=== PATIENT | female | born 1980 | race Caucasian/White ===

== ENCOUNTER 2020-08-30 11:37 | Emergency (ER) | payer OTHER ==
[~2020-08-30] VITALS: Ht 172.7 cm; Wt 74.8 kg
[2020-08-30] MEDS ORDERED: SYNTHROID75 MCG PO (11:51)
[2020-08-30] MEDS ORDERED: [UNRECOGNIZED DRUG - OTHER] PO (11:52)
[2020-08-30] MEDS ORDERED: PROMETHAZINE HC25 M1 PO (15:36)
[2020-08-30] MEDS ORDERED: AUGMENTIN 875-1 EACH PO (15:36)
== END 2020-08-30 15:47 | disposition home or self-care (01) ==
LOC: ED 11:37
DX: J32.9 Chronic sinusitis, unspecified (principal); Z88.6 Allergy status to analgesic agent; Z88.8 Allergy status to other drugs, medicaments and biological substances; Z79.899 Other long term (current) drug therapy; G43.909 Migraine, unspecified, not intractable, without status migrainosus
CPT/HCPCS: 70496; 85025; 96374; 96375; 99284-25; J1100; J1885; Q9967

== ENCOUNTER 2024-12-19 01:50 | Observation (INO) | payer BC ==
[2024-12-19] VITALS (9 sets, daily range): BP systolic 97–128; BP diastolic 60–69
[~2024-12-19] VITALS: Ht 172.7 cm; Wt 74.4 kg
[~2024-12-19 01:50] MED LIST: AUGMENTIN 875-1 EACH PO; PROMETHAZINE HC25 M1 PO; SYNTHROID75 MCG PO; [UNRECOGNIZED DRUG - OTHER] PO
[2024-12-19] MEDS ORDERED: ZOLPIDEM TARTRAT5 MG PO (02:01)
[2024-12-19] MEDS ORDERED: ESTRADIOL0.5 MG PO (02:01)
[2024-12-19 02:13] LABS: BASOPHILS 0.4 % (0-2); EOSINOPHILS 6.1 % (0-6); HEMATOCRIT 43.1 % (35.0-50.0); HEMOGLOBIN 14.8 g/dL (12.0-18.0); LYMPHOCYTES 40.2 % (24-44); MCHC 34.4 g/dl (30-36); MCV 84.2 fl (81-99); MONOCYTES 5.9 % (0-12); NEUTROPHILS 47.4 % (39-80); PLATELET COUNT 218 K/uL (140-440); RBC 5.12 M/ul (4.3-5.7); RDW 13.1 (10.5-15.0)
[2024-12-19] MEDS ORDERED: ONDANSETRON 4 MG TAB ODT SL ONE (02:15)
[2024-12-19] MEDS ORDERED: LIDOCAINE & ANTACID 35 ML BTL PO ONE (02:15)
[2024-12-19 02:25] LABS: ALBUMIN 4.1 g/dL (3.4-5.0); ALBUMIN/GLOBULIN RATIO 1.24 (1.1-2.4); ANION GAP 12.9 (7-21); BILIRUBIN, TOTAL 0.3 mg/dL (0.2-1.0); BUN/CREATININE RATIO 22.89 (6.0-28.6); CALCIUM 9.6 mg/dL (8.5-10.1); CREATININE, SERUM 0.83 mg/dL (0.55-1.02); POTASSIUM 3.9 mmol/L (3.5-5.1); PROTEIN, TOTAL 7.4 g/dL (6.4-8.2)
[2024-12-19] MEDS ORDERED: MORPHINE SULFATE 4 MG/ML VIAL IV ONE (02:30)
[2024-12-19] MEDS ORDERED: HYDROmorphone HCL 1 MG/ML SYR IV PRN ×2 (03:15→04:15)
[2024-12-19] MEDS ORDERED: FAMOTIDINE 20 MG/ 2 ML VIAL IV ONE (03:30)
[2024-12-19] MEDS ORDERED: AMP/SULBACTAM SOD 3 GM in SODIUM CHLORIDE 0.9% 100 ML IV ONE (03:30)
[2024-12-19 03:47] LABS: BILIRUBIN, URINE NEGATIVE (negative); BLOOD/HGB, URINE NEGATIVE (Negative); KETONE, URINE NEGATIVE (Negative); LEUK ESTERASE, URINE NEGATIVE (negative); NITRITE, URINE NEGATIVE (negative)
[2024-12-19 03:52] LABS: EPITHELIAL CELLS, URINE SQUAMOUS 3+ /lpf (0-1+)
[2024-12-19 03:53] LABS: BACTERIA, URINE 4+ /hpf (negative); CASTS, URINE NONE SEEN \\lpf; COLLECTION TYPE, URINE CLEAN CATCH; CRYSTALS, URINE NONE SEEN (0-1+); RED BLOOD CELLS, URINE 0-1 /hpf (0-5); REFLEX CULTURE, URINE No (No)
[2024-12-19] MEDS ORDERED: LACTATED RINGER'S 1,000 ML IV SCH ×3 (04:15→09:30)
[2024-12-19] MEDS ORDERED: ondansetron HCL 4 MG/2 ML VIAL IV PRN ×4 (04:15→09:30)
--- NOTE | 2024-12-19 04:42 | NUR ---
PATIENT TO THE FLOOR BY HAMPER MAKER MACHINE VIA WHEELCHAIR. PATIENT TRANSFERRED FROM WHEELCHAIR TO BED INDEPENDENTLY. VS AND BED WEIGHT OBTAINED AND RECORDED. PATIENT ORIENTED TO ROOM AND CALL LIGHT. PATIENT EDUCATED ON NPO STATUS. PATIENT VERBILIZES UNDERSTANDING. PATIENT ASSESSMENT COMPLETE. PATIENT REPORTS 2/10 ABD PAIN AT THIS TIME. DENIES THE NEED FOR PAIN MEDICATION AT THIS TIME. PATIENT HAS NO FURTHER NEEDS. CALL LIGHT IN REACH.
--- NOTE | 2024-12-19 07:16 | NUR ---
REPORT RECEIVED FROM BASTING MACHINE OPERATOR RN CAROLYN. PATIENT IS LYING IN BED WITH HOB ELEVATED. PATIENT REPORTS PAIN AND IS REQUESTING SOMETHING FOR THAT. PATIENT STATED NO FURTHER NEEDS AT THIS TIME. CALL LIGHT AND PERSONAL BELONGINGS ARE WITHIN REACH.
--- NOTE | 2024-12-19 07:45 | NUR ---
PATIENT IS LYING IN BED WITH HOB ELEVATED. PATIENT WITH EYES OPEN AND RESPIRATIONS ARE EVEN AND UNLABORED. PRN DILAUDID ADMINISTERED FOR ABDOMINAL PAIN OF 4/10. FULL ASSESSMENT COMPLETE AND DOCUMENTED IN THE CHART. IV SITE FLUSHED WITH 10 ML NORMAL SALINE. IV DRESSING IS CLEAN, DRY, AND INTACT. PATIENT HAS LR INFUSING AT 125 ML/HR. SKIN INTACT. PATIENT WITH NO COMPLAINTS OF NAUSEA. PATIENT IS NPO WITH ACTIVE BOWEL TONES IN ALL FOUR QUADRANTS. PATIENT IS ON ROOM AIR AND LUNG SOUNDS ARE CLEAR THROUGHOUT. CARDIAC WITH NORMAL S1 AND S2 ON AUSCULTATION. RADIAL AND PEDAL PULSES ARE STRONG BILATERALLY. NO EDEMA NOTED. CAPILLARY REFILL IN THE UPPER AND LOWER EXTREMITIES IS LESS THAN 3 SECONDS. SENSATION INTACT WITH NO COMPLAINTS OF NUMBNESS OR TINGLING. PATIENT DAUGHTER AND ENTERED THE ROOM AT THIS TIME. PATIENT STATED NO FURTHER NEEDS AT THIS TIME. CALL LIGHT AND PERSONAL BELONGINGS ARE WITHIN REACH.
--- NOTE | 2024-12-19 08:21 | NUR ---
Spoke with Celeste. She lives in a house with her spouse and 3 kids. She is active. Denies any needs to go home and does not have any issues getting in or out of her home. She denies financial issues or safety in her home. Spouse and family will assist her on discharge.
--- NOTE | 2024-12-19 08:25 | NUR ---
PATIENT IS LYING IN BED WITH HOB ELAVATED AND BILATERAL KNEES BENT. PATIENT HAS TWO VISITORS IN THE ROOM AT THIS TIME. PATIENT REPORTED VOIDING, 600ML OF LIGHT YELLOW URINE WAS MEASURED. PATIENT REQUESTED ICE CHIPS FOR DRY MOUTH. MOUTH SWABS AVAILABLE AT THIS TIME. LR CONTINUES TO INFUSE AT 125ML/HR. PATIENT RATES PAIN 0/10 AND DENIES FURTHER NEEDS AT THIS TIME. CALL LIGHT AND PERSONAL BELONGINGS ARE WITHIN REACH.
--- NOTE | 2024-12-19 09:05 | NUR ---
PATIENT LYING IN BED WITH HOB ELEVATED. PATIENT HAS TWO VISITORS AT THIS TIME. THIS STUDENT NURSE, PRIMARY NURSE, LEYDI, AND DR. Andrade IN THE ROOM AT THIS TIME. DR. Andrade DISCUSSING SURGERY OPTIONS AND PATIENT'S SYMPTOMS. PATIENT EXPRESSES UNDERSTANDING AND BEING NPO STATUS SINCE LAST NIGHT. PATIENT DENIES FURTHER NEEDS AT THIS TIME. CALL LIGHT AND PERSONAL BELONGINGS ARE WITHIN REACH.
[2024-12-19] MEDS ORDERED: propofoL 200 MG/20 ML VIAL ONE (09:15)
[2024-12-19] MEDS ORDERED: KETOROLAC TROMETHAMINE 30 MG/ML VIAL ONE (09:15)
[2024-12-19] MEDS ORDERED: LIDOCAINE HCL 2% 5 ML SDV ONE (09:15)
[2024-12-19] MEDS ORDERED: ondansetron HCL 4 MG/2 ML VIAL ONE (09:15)
[2024-12-19] MEDS ORDERED: ROCURONIUM BROMIDE 50 MG/5 ML SYR ONE (09:15)
[2024-12-19] MEDS ORDERED: LIDOCAINE HCL 1% 30 ML SDV ONE (09:15)
[2024-12-19] MEDS ORDERED: MIDAZOLAM HCL 2 MG/2 ML VIAL ONE (09:15)
[2024-12-19] MEDS ORDERED: DEXAMETHASONE SOD PHOS 4 MG/ML VIAL ONE (09:15)
[2024-12-19] MEDS ORDERED: iopamidoL 30 ML VIAL ONE (09:16)
[2024-12-19] MEDS ORDERED: SODIUM CHLORIDE 0.9% 40 ML IV ONE (09:17)
[2024-12-19] MEDS ORDERED: FAMOTIDINE 20 MG/ 2 ML VIAL IV SCH ×2 (09:20→09:30)
[2024-12-19] MEDS ORDERED: fentaNYL citrate 50 MCG/ML SDV IV PRN (09:30)
[2024-12-19] MEDS ORDERED: CEFAZOLIN SODIUM 2 GM/20 ML SYR IV SCH ×2 (09:30)
[2024-12-19] MEDS ORDERED: IBLOOD GLUCOSE TEST STRIP 1 EA TEST VI PRN (09:30)
[2024-12-19] MEDS ORDERED: NALOXONE HCL 0.4 MG SYR IV PRN (09:30)
--- NOTE | 2024-12-19 09:38 | NUR ---
PATIENT IS LEAVING THE FLOOR AT THIS TIME WITH SURGERY TEAM. PATIENT COMPLETED SURGERY WIPE DOWN, REMOVED JEWELERY AND NEW GOWN ON. BED LINENS CHANGED. PRIMARY NURSE, LEYDI, CALLED RESPIRATORY THERAPY TO MEET TEAM IN DAY SURGERY TO COMPLETE AN EKG. PATIENT STATES NO FURTHER NEEDS AT THIS TIME.
--- NOTE | 2024-12-19 09:44 | NUR ---
UR CLINICAL REVIEW: MCG-PER PHYSICAL METALLURGIST MCG ENCOUNTER INACTIVE. PER PHYSICAL METALLURGIST MEETS OBS FOR JAQUELIN DYER [facility] OBS 12/19/24 @ 0920 EMAIL SENT TO ADMITTING TO UPDATE REG NO AUTH REQUIRED FOR OBS VISIT PATIENT LIKELY TO DC TODAY POST PROCEDURE 12/20/24
--- NOTE | 2024-12-19 09:44 | NUR ---
PT NOT AVAILABLE FOR VISIT. PROVIDED PRAYER.
[2024-12-19] MEDS ORDERED: CEFAZOLIN SODIUM 2 GM/20 ML SYR IV ONE (10:00)
[2024-12-19] MEDS ORDERED: KETAMINE in NS 50 MG/5 ML SYR ONE (10:06)
--- NOTE | 2024-12-19 10:06 | NUR ---
PATIENT REMAINS OFF THE FLOOR AT THIS TIME FOR SURGERY.
--- NOTE | 2024-12-19 10:11 | NUR ---
PATIENT IS OFF THE FLOOR AT THIS TIME.
[2024-12-19] MEDS ORDERED: dexmedeTOMIDine HCl 200 MCG/2 ML VIAL ONE (10:14)
[2024-12-19] MEDS ORDERED: ACETAMINOPHEN 1,000 MG/100 ML VIAL ONE (10:18)
[2024-12-19] MEDS ORDERED: MAGNESIUM SULFATE 1 GM/2 ML VIAL ONE (10:24)
[2024-12-19] MEDS ORDERED: LACTATED RINGER'S 1,000 ML IV ONE (10:38)
[2024-12-19] MEDS ORDERED: SUGAMMADEX SODIUM 200 MG/2 ML ML ONE (11:01)
--- NOTE | 2024-12-19 11:06 | NUR ---
PATIENT REMAINS OFF THE FLOOR AT THIS TIME.
[2024-12-19] MEDS ORDERED: ESMOLOL HCL 100 MG/10 ML VIAL IV ONE (11:13)
--- NOTE | 2024-12-19 11:24 | NUR ---
12/19/24 Digeo4 Marie Muller 1114- PT PRESENTS TO PACU, SEMI HERNANDEZ POSITION, NON REACTIVE TO STIMULUS. OPA IN PLACE, BREATHING EVEN AND NON LABORED, ON 6L O2 PER MASK. ABD SOFT, NON DISTENDED, STERI STRIPS IN PLACE TO 4 LAP SITES. LR INFUSING TO LFA IV. ALL MONITORS IN PLACE. 1122- PT SWALLOWING BUT REMAINS NON REACTIVE TO TACTILE STIMULUS. CONTINUE TO MONITOR.
[2024-12-19] MEDS ORDERED: MOTRIN IB200 MG PO (11:32)
[2024-12-19] MEDS ORDERED: TYLENOL EXTRA500 MG PO (11:32)
[2024-12-19] MEDS ORDERED: DILAUDID2 MG PO (11:32)
--- NOTE | 2024-12-19 11:40 | NUR ---
RECIEVED REPORT FROM CHICHO HOLLEY. ASSUMING CARE OF THIS PT. PT IN SURGERY AT THIS TIME.
--- NOTE | 2024-12-19 11:50 | NUR ---
PT ARRIVES BACK TO MEDSUR ROOM WITH AND SON AT THE BEDSIDE. REPORT RECIEVED FROM CHICHO MADISON. PT DENIES NAUSEA, STATES SHE HAS ABDOMINAL PAIN AND STATES "IT JUST HURTS REALLY BAD" WHEN ASKED TO RATE PAIN. KITA KENDALL AT THE BEDSIDE AND ATTENDS TO PAIN CONTROL NEEDS. PT REQUESTS WARM BLANKET, GIVEN. PT PT DECLINES FOOD OR DRINK AT THIS TIME. CALL LIGHT WITHIN REACH. VSS. CPOX IN PLACE, SCDs IN PLACE.
[2024-12-19] MEDS ORDERED: HYDROmorphone HCL 1 MG/ML SYR ONE (12:04)
[2024-12-19] MEDS ORDERED: IBUPROFEN 600 MG TAB PO PRN (12:15)
[2024-12-19] MEDS ORDERED: ACETAMINOPHEN 500 MG TAB PO PRN (12:15)
[2024-12-19] MEDS ORDERED: HYDROmorphone HCL 2 MG TAB PO PRN (12:15)
[2024-12-19] MEDS ORDERED: SEVOFLURANE 250 ML BTL INH ONE (13:15)
--- NOTE | 2024-12-19 13:17 | EKG ---
[facility] [address] [facility] [place], [place] [address] Signed Sinus bradycardia Otherwise normal ECG No previous ECGs available Confirmed by Ru Enriquez MD ([id number]) on 12/19/2024 1:17:40 PM Electronically Signed By: RU ENRIQUEZ MD 12/19/24 1317 PATIENT NAME: EDITH KEENAN CHAPARRITA Electrocardiogram DATE OF : 76 PHYSICIAN: RU ENRIQUEZ MD REPORT #: [id number] REPORT IS CONFIDENTIAL AND NOT TO BE RELEASED WITHOUT AUTHORIZATION
--- NOTE | 2024-12-19 14:05 | NUR ---
THIS RN ENTERS ROOM TO DO POST OP VITAL SIGNS WELL ADMINISTER SCHEDULED ANTIBIOTICS. WHILE ADMINISTERING ANTIBIOTICS VIA IV, PT STATES SHE IS FEELING NAUSEAS. PT GIVEN EMESIS BAG AND ZOFRAN ADMINISTERED. BLANKETS REMOVED AND SCDs REMOVED AT THIS TIME. PT STATES "THAT FEELS BETTER" AT THIS TIME. PT STATES PAIN IS CURRENTLY 2/10. VSS. PT ABLE TO EAT SMALL AMOUNT OF FOOD PRIOR TO NAUSEA. PT STATES NO FURTHER NEEDS AT THIS TIME, CALL LIGHT WITHIN REACH.
--- NOTE | 2024-12-19 14:58 | NUR ---
PT DENIES PAIN AND NAUSEA AT THIS TIME. VSS. PT STATES NO CURRENT NEEDS. CALL LIGHT WITHIN REACH. PT REFUSES SCDs AT THIS TIME.
--- NOTE | 2024-12-19 15:28 | NUR ---
PT UP TO RESTROOM WITH SBA, AMBULATES W/O DIFFICULTY AND WITH MINIMAL PAIN. PT DENIES NAUSEA. PT VOIDS W/O DIFFICULTY. PT STATES SHE FEELS READY TO GO HOME.
--- NOTE | 2024-12-19 15:36 | NUR ---
THIS RN CALLS DR. ROSE TO UPDATE ON PT STATUS. STATES PT IS OKAY TO DC WHEN READY.
--- NOTE | 2024-12-19 16:02 | NUR ---
PT DRESSES SELF IN OWN CLOTHES. IV DC'D WNL. DC EDUCATION AND PACKET GIVEN, PT VERBALIZES UNDERSTANDING. VSS. PT STATES ALL QUESTIONS HAVE BEEN ANSWERED. PT LEAVING WITH ALL PERSONAL BELONGINGS. PT AMBULATES TO WHEELCHAIR, WHEELED TO FRONT OF BUILDING BY NURSING PERSONEL.
--- NOTE | 2024-12-20 07:57 | HP ---
[facility] [address] [place], [place] [address] Signed ADMISSION DATE: 12/19/2024 REASON FOR ADMISSION: Acute calculous cholecystitis. HISTORY OF PRESENT ILLNESS: This 44-year-old white woman is a patient of Dr. Erin Payan. Her daughter is known to me having had cholecystectomy in her teenage years. The patient has had episodic upper abdominal pain for several weeks, but in the past few days has had increasing pain. At approximately 11:00 p.m. last night, her epigastric pain recurred and was quite severe. She presented to the emergency room where she was evaluated by Dr. Raciel Henderson and findings suggestive of acute calculous cholecystitis. A gallbladder ultrasound was performed which showed multiple gallstones within the gallbladder. LABORATORY STUDIES: Were essentially normal with a white count of 9.5 and liver enzymes notable for a normal bilirubin of 0.3, alkaline phosphatase 101. She is admitted for further evaluation and care. Since admission, she has been improved overall. She has had no nausea or vomiting and her pain is better. 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 SURGICAL HISTORY: Includes hysterectomy, x3, breast augmentation and uncertain cardiac operation at age 14. She has no cardiac symptoms. 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 ALLERGIES: Include aspirin causing nausea, Tylenol with Vicodin causing mild nausea and hydrocodone similar symptoms as might be expected. CURRENT MEDICATIONS: Include estradiol 0.5 mg p.o. daily and zolpidem 5 mg daily. SOCIAL HISTORY: Electronically Signed By: JUDITH ROSE MD 12/20/24 0757 PATIENT NAME: EDITH KEENAN HISTORY AND PHYSICAL DATE OF : 76 REPORT #: [id number] PHYSICIAN: JUDITH ROSE MD PCP: ERIN PAYAN MD REPORT IS CONFIDENTIAL AND NOT TO BE RELEASED WITHOUT AUTHORIZATION [facility] [address] [place], [place] [address] Signed She is . She is accompanied by her and her daughter at this time. They live in [place]. REVIEW OF SYSTEMS: She denies any shortness of breath or chest pain. She has had no dysphagia or dysuria. Denies hematemesis or blood per rectum. Her pain is in the right upper quadrant and is improved since admission. PHYSICAL EXAMINATION: GENERAL: Pleasant white woman who looks to be nontoxic. VITAL SIGNS: Height is 5 feet 8 inches, weight is 74.4 kg, BMI 24.9. HEENT: Trachea is midline. Mucous membranes are reasonably moist. CHEST: Shows normal respiratory excursion. Pulses regular. ABDOMEN: Scaphoid and soft. There is mild tenderness in the right subcostal and epigastric area. There is no palpable mass. She has no ascites. EXTREMITIES: Show no clubbing, cyanosis, or edema. LABORATORY DATA: Lab studies as noted. White count 8.6, hematocrit 43.1, platelets 218,000. Chem profile essentially normal, glucose 114. Liver enzymes normal. Lipase normal at 62. Urinalysis negative. Ultrasound findings included interpretation of a gallbladder dilated with wall thickening and gallstones and positive sonographic Mahoney sign. Common bile duct was 4.2 mm. Liver was normal. Images were reviewed of the gallbladder, which show normal appearing liver. The gallbladder has what appeared to be layering stones and sludge. There is no evidence of neoplasm. ASSESSMENT: The patient has clinical findings of acute calculous cholecystitis. She has family history of same in her daughter. I discussed with the patient and her family the pathophysiology of biliary disease and recommendation of treatment to include cholecystectomy preferred by a laparoscopic approach. The risk of bleeding, infection, bile duct injury, need for open procedure, need for common duct exploration and so forth were all reviewed with her, she understands and wished to proceed. MD KERRY Johnson/PATRICIOL /[id number] Electronically Signed By: JUDITH ROSE MD 12/20/24 0757 PATIENT NAME: EDITH KEENAN HISTORY AND PHYSICAL DATE OF : [birth year] REPORT #: [id number] PHYSICIAN: JUDITH ROSE MD PCP: ERIN PAYAN MD REPORT IS CONFIDENTIAL AND NOT TO BE RELEASED WITHOUT AUTHORIZATION [facility] [address] [place] [address] Signed cc: Erin Payan MD Copies: ~ Electronically Signed By: JUDITH ROSE MD 12/20/24 0757 PATIENT NAME: EDITH KEENAN CHAPARRITA HISTORY AND PHYSICAL DATE OF : [birth year] REPORT #: [id number] PHYSICIAN: JUDITH ROSE MD PCP: ERIN PAYAN MD REPORT IS CONFIDENTIAL AND NOT TO BE RELEASED WITHOUT AUTHORIZATION
--- NOTE | 2024-12-20 07:57 | OR ---
[facility] [address] [place], [place] [address] Signed DATE OF OPERATION: 12/19/2024 SURGEON: Judith Rose MD PREOPERATIVE DIAGNOSIS: Acute calculous cholecystitis. POSTOPERATIVE DIAGNOSIS: Acute calculous cholecystitis. PROCEDURES: 1. Laparoscopic cholecystectomy with intraoperative cholangiogram. 2. Surgeon-directed fluoroscopy. ANESTHESIA: General endotracheal; Radha Bradford CRNA and local 10 mL of 0.25% Marcaine with epinephrine. INDICATION: This 44-year-old white woman was seen in the emergency room late last night by Dr. Raciel Hendesron for right upper abdominal pain which had been going on for a number of hours and episodically several weeks before. Evaluation included liver enzymes and CBC, which were normal and a gallbladder ultrasound showing gallstones within the gallbladder. She was admitted, given fluid resuscitation and IV antibiotics and now to undergo cholecystectomy preferred by a laparoscopic approach. The risk of bleeding, infection, bile duct injury, need for open surgery and other unforeseen complications was reviewed in detail. She understands and wished to proceed. FINDINGS: The gallbladder was edematous and acutely inflamed. The liver was normal. Cholangiogram was normal. The gallbladder once excised showed multiple yellow gallstones approximately 5 mm in size. There were no other issues and she had no complications with operation. DESCRIPTION OF PROCEDURE: The patient was brought to the operating room, given a general endotracheal anesthetic. Preoperative antibiotic Ancef was given. Sequential compression device stockings were applied and after satisfactory general endotracheal anesthesia, the abdomen was prepared with chlorhexidine solution and draped sterilely. An infraumbilical incision was made and using an open Thomas cannula technique pneumoperitoneum was achieved to a level of Electronically Signed By: JUDITH ROSE MD 12/20/24 0757 PATIENT NAME: EDITH KEENAN OPERATIVE REPORT DATE OF : [birth year] REPORT #: [id number] PHYSICIAN: JUDITH ROSE MD PCP: BEATRIS GARCIA MD REPORT IS CONFIDENTIAL AND NOT TO BE RELEASED WITHOUT AUTHORIZATION [facility] [address] [place], [place] [address] Signed 14 mmHg of carbon dioxide gas. Intra-abdominal inspection showed no sign of ascites or carcinomatosis. The liver appeared normal. The gallbladder was inflamed and mildly distended. Three additional trocars were placed in their usual configuration in the subxiphoid, right midclavicular, and right anterior axillary line. The gallbladder was elevated cephalad and omental adhesions to its undersurface were taken down with blunt and electrocautery dissection. Further elevation of the gallbladder allowed for lateral retraction of the infundibulum and using blunt and electrocautery dissection the triangle of Calot was dissected free using electrocautery. The cystic artery was easily identified and doubly clipped and divided. The cystic duct was quite narrow, but well demonstrated. The critical view of safety was maintained. A clip was applied across the gallbladder cystic duct junction and transverse choledochotomy was made in the cystic duct. Egress of clear bile was noted. Using the Albright type cholangiocatheter system, intraoperative cholangiography was undertaken showing free flow of contrast in the biliary tree with prompt emptying into the duodenum. The cystic duct was triply clipped and divided and the gallbladder dissected free in a retrograde fashion using electrocautery. Gallbladder was extracted through the infraumbilical port site, opened on the back table and found to have numerous less than 5 mm yellow gallstones. Mucosa was inflamed, but without sign of neoplasm. Irrigation was undertaken in the subhepatic space. There was no sign of bile leak bleeding or other problems. The trocars were removed under direct visualization showing no sign of bleeding. The infraumbilical fascial incision was reapproximated with interrupted 0 Vicryl suture. 10 mL of 0.25% Marcaine with epinephrine was injected locally and the skin was closed with interrupted 3-0 Vicryl, Steri-Strips were applied. The patient was ultimately extubated and transferred to the recovery room in good condition having suffered no complication. Sponge, needle, and instrument counts reported as correct x3. MD KERRY Johnson/MODL /[id number] cc: MD Dr. Raciel Hester Electronically Signed By: JUDITH ROSE MD 12/20/24 0757 PATIENT NAME: EDITH KEENAN OPERATIVE REPORT DATE OF : [birth year] REPORT #: [id number] PHYSICIAN: JUDITH ROSE MD PCP: BEATRIS GARCIA MD REPORT IS CONFIDENTIAL AND NOT TO BE RELEASED WITHOUT AUTHORIZATION [address] [address] Signed Copies: ~ Electronically Signed By: JUDITH ROSE MD 12/20/24 0757 PATIENT NAME: EDITH KEENAN CHAPARRITA OPERATIVE REPORT DATE OF : [birth year] REPORT #: [id number] PHYSICIAN: JUDITH ROSE MD PCP: BEATRIS GARCIA MD REPORT IS CONFIDENTIAL AND NOT TO BE RELEASED WITHOUT AUTHORIZATION
--- NOTE | 2024-12-21 14:49 | PATH ---
[facility] [address] [facility] [place] [place] [place] [address] Signed SPECIMEN(S): A GALLBLADDER AND GALLSTONES SPECIMEN SOURCE: A. GALLBLADDER AND GALLSTONES CLINICAL HISTORY: Acute cholecystitis FINAL PATHOLOGIC DIAGNOSIS: Gallbladder and gallstones: - Chronic calculus cholecystitis. - Incidental pericystic lymph node with reactive histologic features. JVR:pam MICROSCOPIC EXAMINATION: Histologic sections of all submitted blocks are examined by light microscopy. These findings, together with the gross examination, support the pathologic diagnosis. GROSS DESCRIPTION: The specimen, labeled and designated "Brown, K., gallbladder and gallstones per requisition," is received in formalin and consists of Specimen: Surgically disrupted gallbladder. Dimensions: 10.5 x 3.1 x 2.3 cm. Serosa: Blue-green and smooth. Cystic Duct: Unobstructed. Calculi: Present�yellow and botryoid, within container. Mucosa: Green and velvety. Wall thickness: 0.2 cm. Lymph node: A pericystic lymph node is grossly identified. Additional: None. Grievance And Appeals Specialist sections are submitted in (A1). AA (under the direct supervision of a pathologist) The Gross Description was prepared using a voice recognition system. The report was reviewed for accuracy; however, sound-alike word errors, addition and/or deletions may occur. If there is any question about this report, please contact Client Services. PERFORMING LABORATORY: Technical component was performed by [facility], [address] [place] [id number] (CLIA# [id number]). Professional interpretation was PATIENT NAME: EDITH KEENAN PATHOLOGY DATE OF : [birth year] REPORT #: [id number] PHYSICIAN: RAFAELAYTE PATHOLOGY PCP: BEATRIS GARCIA MD REPORT IS CONFIDENTIAL AND NOT TO BE RELEASED WITHOUT AUTHORIZATION [address] [address] Signed performed by [facility] [address] [address] (CLIA#: [id number]). Diagnostician: Suresh Lentz MD Pathologist Electronically Signed 12/21/2024 Copies: ~ PATIENT NAME: EDITH KEENAN PATHOLOGY DATE OF : [birth year] REPORT #: [id number] PHYSICIAN: RAFAELAYTE PATHOLOGY PCP: BEATRIS GARCIA MD REPORT IS CONFIDENTIAL AND NOT TO BE RELEASED WITHOUT AUTHORIZATION
== END 2024-12-19 16:02 | disposition home or self-care (01) ==
LOC: ED 01:50 → MS 03:38
PROVIDERS: Emergency Medicine; ADMIT Surgery; ATTEND Surgery
PROC: BF13YZZ Fluoroscopy of Gallbladder and Bile Ducts using Other Contrast (ICD-10-PCS; 2024-12-19)
PROC: 0FT44ZZ Resection of Gallbladder, Percutaneous Endoscopic Approach (ICD-10-PCS; principal; 2024-12-19 09:30)
DX: K80.12 Calculus of gallbladder with acute and chronic cholecystitis without obstruction (principal); Z88.8 Allergy status to other drugs, medicaments and biological substances; Z88.5 Allergy status to narcotic agent; Z79.899 Other long term (current) drug therapy
CPT/HCPCS: 00790; 36415; 74300; 76705; 80053; 81001; 83690; 85025; 93005; 93010; A9270; J0131; J0295; J0690; J1100; J1171; J1885; J2003; J2250; J2270; J2405; J2704; J3475; J3490; J7121; Q9967

== ENCOUNTER 2025-02-04 14:40 | Emergency (ER) | payer BC ==
[~2025-02-04] VITALS: Ht 172.7 cm; Wt 72.3 kg
[~2025-02-04 14:40] MED LIST changes: +DILAUDID2 MG PO; +ESTRADIOL0.5 MG PO; +MOTRIN IB200 MG PO; +TYLENOL EXTRA500 MG PO; +ZOLPIDEM TARTRAT5 MG PO
[2025-02-04] MEDS ORDERED: METOCLOPRAMIDE HCL 10 MG/2 ML SDV IV ONE (15:00)
[2025-02-04] MEDS ORDERED: ondansetron HCL 4 MG/2 ML VIAL IV ONE (15:00)
[2025-02-04] MEDS ORDERED: SODIUM CHLORIDE 0.9% 1,000 ML IV PRN (15:00)
[2025-02-04] MEDS ORDERED: diphenhydrAMINE HCL 50 MG/ML VIAL IV ONE (15:00)
[2025-02-04 15:16] LABS: BASOPHILS 0.4 % (0.1-1.2); EOSINOPHILS 5.6 % (0.7-5.8); HEMATOCRIT 40.7 % (34.1-44.9); HEMOGLOBIN 13.8 g/dL (11.2-15.7); LYMPHOCYTES 32.4 % (19.3-51.7); MCH 28.9 PG (25.6-32.2); MCHC 33.9 g/dL (32.2-35.5); MCV 85.1 fL (79.4-94.8); MONOCYTES 6.7 % (4.7-12.5); NEUTROPHILS 54.6 % (34.0-71.1); PLATELET COUNT 211 K/uL (182-369); RBC 4.78 M/uL (3.93-5.22)
[2025-02-04 15:28] LABS: INR 0.93 (0.80-1.30); PARTIAL THROMBOPLASTIN TIME 28.2 Sec (22.9-41.3); PROTIME 11.9 Sec (11.2-14.2)
[2025-02-04 15:32] LABS: ALBUMIN 3.8 g/dL (3.4-5.0); ALBUMIN/GLOBULIN RATIO 1.23 (1.1-2.4); ANION GAP 13.1 (7-21); BILIRUBIN, TOTAL 0.4 mg/dL (0.2-1.0); BUN/CREATININE RATIO 11.36 (6.0-28.6); CALCIUM 8.8 mg/dL (8.5-10.1); CREATININE, SERUM 0.88 mg/dL (0.55-1.02); POTASSIUM 4.1 mmol/L (3.5-5.1); PROTEIN, TOTAL 6.9 g/dL (6.4-8.2)
[2025-02-04 16:40] VITALS: BP 133/87
--- NOTE | 2025-02-04 21:04 | EKG ---
[facility] [facility] [address] [facility] [place] [address] Signed Sinus bradycardia Otherwise normal ECG When compared with ECG of 19-DEC-2024 09:43, No significant change was found Confirmed by Ba Metz MD () on 02/04/2025 9:04:14 PM Electronically Signed By: AB METZ MD 02/04/252103 PATIENT NAME: EDITH KEENAN CHAPARRITA Electrocardiogram DATE OF : [birth year] PHYSICIAN: BA METZ MD REPORT #: [id number] REPORT IS CONFIDENTIAL AND NOT TO BE RELEASED WITHOUT AUTHORIZATION
== END 2025-02-04 16:42 | disposition home or self-care (01) ==
LOC: ED 14:40
PROVIDERS: Emergency Medicine
DX: G43.109 Migraine with aura, not intractable, without status migrainosus (principal); Z79.899 Other long term (current) drug therapy; Z88.6 Allergy status to analgesic agent; Z88.5 Allergy status to narcotic agent
CPT/HCPCS: 36415; 70450; 70496; 70498; 71045; 80053; 85025; 85610; 85730; 93005; 93010; 99284-25; J1200; J2405; J2765; J7030; Q9967

== ENCOUNTER 2025-04-18 20:01 | Emergency (ER) | payer BC ==
[~2025-04-18] VITALS: Ht 172.7 cm; Wt 72.3 kg
[2025-04-18 20:15] LABS: BASOPHILS 0.3 % (0.1-1.2); EOSINOPHILS 4.5 % (0.7-5.8); LYMPHOCYTES 31.2 % (19.3-51.7); MCH 28.9 PG (25.6-32.2); MCHC 34.0 g/dL (32.2-35.5); MCV 85.0 fL (79.4-94.8); MONOCYTES 6.5 % (4.7-12.5); NEUTROPHILS 57.2 % (34.0-71.1); RBC 5.26 M/uL (3.93-5.22)
[2025-04-18 20:26] LABS: INR 0.94 (0.80-1.30); PROTIME 11.9 Sec (11.2-14.2)
[2025-04-18 20:39] LABS: ALT (SGPT) 13.0 U/L (14-59); AST (SGOT) 13.0 U/L (15-37); GLOMERULAR FILTRATION RATE,EST 79.0 mL/min (>60); PROTEIN, TOTAL 7.9 g/dL (6.4-8.2); TSH, 3RD GENERATION 3.362 uIU/mL (0.358-3.740); UREA NITROGEN 13.0 mg/dL (7-18)
[2025-04-18 21:01] LABS: BLOOD/HGB, URINE TRACE-I (Negative); KETONE, URINE NEGATIVE (Negative); LEUK ESTERASE, URINE NEGATIVE (negative); NITRITE, URINE NEGATIVE (negative)
[2025-04-18 21:06] LABS: EPITHELIAL CELLS, URINE SQUAMOUS 1+ /lpf (0-1+)
[2025-04-18 21:07] LABS: BACTERIA, URINE RARE /hpf (negative); CASTS, URINE NONE SEEN \\lpf; CRYSTALS, URINE NONE SEEN (0-1+); REFLEX CULTURE, URINE No (No)
[2025-04-18 21:15] LABS: AMPHETAMINES, URINE NEGATIVE (NEGATIVE); BARBITURATES, URINE NEGATIVE (NEGATIVE); BENZODIAZEPINE, URINE NEGATIVE (NEGATIVE); CANNABINOID, URINE NEGATIVE (NEGATIVE); COCAINE, URINE NEGATIVE (NEGATIVE); ECSTASY, URINE NEGATIVE (NEGATIVE); FENTANYL, URINE NEGATIVE (NEGATIVE); METHADONE, URINE NEGATIVE (NEGATIVE); OPIATES, URINE NEGATIVE (NEGATIVE); OXYCODONE, URINE NEGATIVE (NEGATIVE); PHENCYCLIDINE, URINE NEGATIVE (NEGATIVE)
[2025-04-18 23:34] VITALS: BP 121/77
--- NOTE | 2025-04-20 22:17 | EKG ---
[facility] [address] [facility] [place] [address] Signed Normal sinus rhythm Normal ECG When compared with ECG of 04-FEB-2025 15:21, No significant change was found Confirmed by Ba Metz MD () on 04/20/2025 10:17:19 PM Electronically Signed By: BA METZ MD 04/20/25 2217 PATIENT NAME: EDITH KEENAN CHAPARRITA Electrocardiogram DATE OF : [birth year] PHYSICIAN: BA METZ MD REPORT #: [id number] REPORT IS CONFIDENTIAL AND NOT TO BE RELEASED WITHOUT AUTHORIZATION
== END 2025-04-18 23:36 | disposition home or self-care (01) ==
LOC: ED 20:01
PROVIDERS: Family Medicine
DX: G43.409 Hemiplegic migraine, not intractable, without status migrainosus (principal); Z88.6 Allergy status to analgesic agent; Z88.5 Allergy status to narcotic agent; Z79.899 Other long term (current) drug therapy
CPT/HCPCS: 36415; 70450; 80053; 80307; 81001; 84443; 85025; 85610; 93005; 93010; 99284-25

== ENCOUNTER 2025-07-16 09:57 | Day surgery (SDC) | payer BC ==
[~2025-07-16] VITALS: Ht 172.7 cm; Wt 69.0 kg
[~2025-07-16 09:57] MED LIST changes: +IBLOOD GLUCOSE TEST STRIP 1 EA TEST VI PRN; +LACTATED RINGER'S 1,000 ML IV SCH; +LIDOCAINE HCL 1% 5 ML SDV INJ ONE; +LIDOCAINE HCL 2% 5 ML SDV ONE
[2025-07-16 10:09] VITALS: BP 126/74
--- NOTE | 2025-07-16 12:30 | NUR ---
07/16/25 Marie Mooney 1210- PT PRESENTS TO PACU, LEFT LATERAL POSITION, NON REACTIVE TO STIMULUS. BREATHING EVEN AND NON LABORED, O2 AT 2L PER NC. ABD SOFT, NON DISTENDED. LR INFUSING TO RFA IV. ALL MONITORS IN PLACE. 1215- PT MOVED TO ROOM AIR. 1224- PT WOKE ON OWN, REORIENTED TO TIME AND PLACE. PT DENIES PAIN OR NAUSEA, ENCOURAGED TO PASS GAS. 1228- PT ROLLED TO BACK INDEPENDENTLY, SAT UP IN BED, DECLINED SOMETHING TO DRINK AT THIS TIME.
[2025-07-16 12:31] VITALS: BP 120/80
--- NOTE | 2025-07-17 08:33 | OR ---
[facility] [address] [facility] [place], [place] [address] Signed DATE OF OPERATION: 07/16/2025 SURGEON: Pratima Carcamo DO PREOPERATIVE DIAGNOSIS: Colon cancer screening. POSTOPERATIVE DIAGNOSES: 1. Colon cancer screening with moderate proctitis. 2. Diverticulosis. PROCEDURE PERFORMED: Colonoscopy with biopsy at 10 cm of the rectum. ANESTHESIA: IV sedation. ESTIMATED BLOOD LOSS: None. DRAINS: None. COMPLICATIONS: None. DESCRIPTION OF PROCEDURE: The patient brought to the GI lab and placed in supine position. After induction of IV sedation, the patient was then placed in left lateral position and padded to the satisfaction of anesthesia. The Olympus video colonoscope was then introduced into the anus and into the rectum. Upon encountering the rectum, some moderate proctitis was noted. Multiple biopsies were taken of this area of inflammation at approximately 10 cm and passed off the field to Pathology for review. While insufflating and under direct visualization, the scope was then advanced through the rectosigmoid, sigmoid colon, descending colon, transverse colon, ascending colon and into the cecum. The ascending colon and cecum had no intrinsic or extrinsic masses appreciated. Scope was then brought back past the hepatic flexure and into the transverse colon. No intrinsic or extrinsic masses were appreciated. Scope was then brought back through the splenic flexure into the descending colon. No intrinsic or extrinsic masses and no lesions were noted. The scope was brought back into the sigmoid colon. Some scattered diverticula Electronically Signed By: PRATIMA CARCAMO DO 07/17/25 0833 PATIENT NAME: EDITH KEENAN OPERATIVE REPORT DATE OF : [birth year] REPORT #: [id number] PHYSICIAN: PRATIMA CARCAMO DO PCP: BEATRIS GARCIA MD REPORT IS CONFIDENTIAL AND NOT TO BE RELEASED WITHOUT AUTHORIZATION [address] [place], [place] [address] Signed were appreciated but no evidence of diverticulitis was noted. The scope was brought back into the rectosigmoid. Some mild to moderate colitis was present. The scope was brought into the rectal vault and moderate proctitis was noted throughout. Photographs were taken all through the way. The scope was withdrawn. The patient tolerated the procedure well and taken to recovery room in satisfactory condition. DO DONALD Kearns/SMITH /[id number] Copies: ~ Electronically Signed By: PRATIMA CARCAMO DO 07/17/25 0833 PATIENT NAME: EDITH KEENAN OPERATIVE REPORT DATE OF : [birth year] REPORT #: [id number] PHYSICIAN: PRATIMA CARCAMO DO PCP: BEATRIS GARCIA MD REPORT IS CONFIDENTIAL AND NOT TO BE RELEASED WITHOUT AUTHORIZATION
--- NOTE | 2025-07-18 09:58 | PATH ---
[facility] [address] [place], [place] [address] Signed SPECIMEN(S): A COLON BIOPSY AT 10 CM SPECIMEN SOURCE: A. COLON BIOPSY AT 10 CM CLINICAL HISTORY: Screening, proctitis, diverticulosis FINAL PATHOLOGIC DIAGNOSIS: Colon biopsy at 10 cm: - Benign colonic mucosa with slight hyperplastic features (two fragments). - Negative for pathologic inflammation. J MICROSCOPIC EXAMINATION: Histologic sections of all submitted blocks are examined by light microscopy. These findings, together with the gross examination, support the pathologic diagnosis. GROSS DESCRIPTION: The specimen, labeled and designated "Brown, colon biopsy at 10 cm," is received in formalin and consists of two metzger soft tissue fragments, ranging from 0.2-0.3 cm. Entirely submitted in (A1). VB (under the direct supervision of a pathologist) The Gross Description was prepared using a voice recognition system. The report was reviewed for accuracy; however, sound-alike word errors, addition and/or deletions may occur. If there is any question about this report, please contact Client Services. ADDITIONAL NOTES: Immunohistochemical and/or in situ hybridization studies if performed in this case included appropriate positive controls that reacted as expected. This test was developed and its performance characteristics determined by [facility]. It has not been cleared or approved by the U.S. Food and Drug Administration. The FDA has determined that such clearance or approval is not necessary. This test is used for clinical purposes. It should not be regarded as investigational or for research. [facility] is certified under the Clinical Laboratory Improvement Amendments of 1988 (CLIA) as qualified to perform high complexity clinical laboratory testing. PATIENT NAME: EDITH KEENAN PATHOLOGY DATE OF : 76 REPORT #: [id number] PHYSICIAN: DEE MONTELONGO PCP: BEATRIS GARCIA MD REPORT IS CONFIDENTIAL AND NOT TO BE RELEASED WITHOUT AUTHORIZATION [address] [place], [place] [address] Signed PERFORMING LABORATORY: Technical component was performed by [facility], [address] [place] [id number] (CLIA# [id number]). Professional interpretation was performed by [facility] - [address] [place] [id number] (CLIA#: [id number]). Diagnostician: Suresh Lentz MD Pathologist Electronically Signed 07/18/2025 Copies: ~ PATIENT NAME: EDITH KEENAN PATHOLOGY DATE OF : 76 REPORT #: [id number] PHYSICIAN: DEE MONTELONGO PCP: BEATRIS GARCIA MD REPORT IS CONFIDENTIAL AND NOT TO BE RELEASED WITHOUT AUTHORIZATION
== END 2025-07-16 12:45 | disposition home or self-care (01) ==
LOC: OPS 09:57 → DS 09:57 → OPS 11:05 → DS 12:00 → OPS 12:45 → DS 08-13 09:35
PROVIDERS: ATTEND Surgery
PROC: 0DBP8ZX Excision of Rectum, Via Natural or Artificial Opening Endoscopic, Diagnostic (ICD-10-PCS; principal; 2025-07-16 11:05)
DX: Z12.11 Encounter for screening for malignant neoplasm of colon (principal); K52.9 Noninfective gastroenteritis and colitis, unspecified; K62.89 Other specified diseases of anus and rectum; K57.30 Diverticulosis of large intestine without perforation or abscess without bleeding; E03.9 Hypothyroidism, unspecified; G43.409 Hemiplegic migraine, not intractable, without status migrainosus; Z88.6 Allergy status to analgesic agent; Z88.8 Allergy status to other drugs, medicaments and biological substances; Z90.49 Acquired absence of other specified parts of digestive tract; Z80.0 Family history of malignant neoplasm of digestive organs
CPT/HCPCS: 00811; J2003; J2704; J7121